=== PATIENT | female | born 1995 | race African-American/Black ===

== ENCOUNTER 2016-08-02 10:55 | Emergency (ER) | payer MEDICAID ==
[2016-08-02 11:00] VITALS: RESP 16; TEMP 98.4
[2016-08-02] MEDS ORDERED: IBUPROFEN 600 MG TAB PO ONE (11:27)
--- NOTE | 2016-08-02 11:31 | EDPHY ---
H & P Stated Complaint: L foot injury yesterday from soccer game HPI/ROS: CHIEF COMPLAINT: Right foot pain HISTORY OF PRESENT ILLNESS: Patient was playing soccer last night around 8:00 p.m. when she injured her foot. She describes an inversion injury. There is minimal pain at that time. Over the course of the evening she noted some increasing pain. At midnight she woke with severe pain on the right foot over the 5th metatarsal. It was difficult to walk on. She took some Advil that improved her symptoms will back to sleep. Minimal pain at rest. Moderate pain when ambulating. Too painful for her to walk on. No radiating pain. No numbness or tingling. No pain in the ipsilateral ankle, heel, catalan or knee. No other associated complaints or modifying factors. PRIOR ORTHO INJURIES: Prior knee surgery in [place] REVIEW OF SYSTEMS: Ten systems reviewed and are negative unless otherwise noted in the HPI EXAMINATION General Appearance: Alert, no distress Cardiovascular: Pulses normal throughout. Symmetric DP and PT pulses. Brisk cap refill Neurological: A&O, sensory symmetric, strength symmetric. Normal proprioception great toe. Skin: Warm and dry, no rash. No ecchymosis. No hematoma. No lacerations or abrasions. Extremities: Right lower extremity: Tenderness to palpation over the base of the right 5th metatarsal. There is no tenderness of the medial malleolus. No tenderness of the lateral malleolus. No tenderness of the calcaneus. No tenderness of the proximal fibula. Range of motion is intact and symmetric to the left lower extremity. Neurovascular intact distal to the right foot pain. Psychiatric: Mood and affect normal DIFFERENTIAL DIAGNOSES: Including but not limited to sprain, strain, fracture, contusion, hematoma MDM: 11:20 a.m. Acute sprain of the right foot over the base of the 5th metatarsal. No tenderness of the malleoli. No tenderness of the calcaneus or proximal fibula. X-ray of the foot is ordered. 12:15 p.m. No acute radiologic abnormality as interpreted by me. 12:40 p.m. No acute findings on the x-ray by radiologist. Patient will be placed in a postoperative shoe and discharged home weightbearing as tolerated. Standard precautions for sprain discussed with the patient. She is to follow up with Orthopedics for definitive care. Return to the ED precautions discussed. She is comfortable with this plan, discharged home in stable condition, neurovascular intact. ED Precautions: Worsening pain. Erythema, edema, cyanosis, pallor, paresthesia or anesthesia. SUPERVISION: This patient was independently evaluated without direct examination by the attending physician. Case was discussed with attending physician. Source: Patient Exam Limitations: No limitations - Personal History LMP (Females 10-55): 15-21 Days Ago Current Tetanus Diphtheria and Acellular Pertussis (TDAP): Yes - Medical/Surgical History Other PMH: neg - Social History Smoking Status: Never smoked Constitutional: Initial Vital Signs Temperature (C) 98.4 F 08/02/16 10:56 Heart Rate 93 08/02/16 10:56 Respiratory Rate 16 08/02/16 10:56 Blood Pressure 113/65 08/02/16 10:56 O2 Sat (%) 97 08/02/16 10:56 O2 Delivery Mode Room Air Allergies/Adverse Reactions: No Known Allergies Allergy (Unverified 08/02/16 10:59) Home Medications: Medication Instructions Recorded NK [No Known Home Meds] 08/02/16 Medical Decision Making - Diagnostics Imaging Results: Imaging Impressions Foot X-Ray 08/02/16 11:02 Impression: There is no acute osseous abnormality identified. - Data Points Medications Given: Discontinued Medications Ibuprofen (Motrin) 600 mg PO EDNOW ONE Stop: 08/02/16 11:28 Last Admin: 08/02/16 11:35 Dose: 600 mg Departure - Departure Disposition: Home, Routine, Self-Care Clinical Impression: Foot sprain Qualifiers: Encounter type: initial encounter Laterality: right Qualified Code(s): S93.601A - Unspecified sprain of right foot, initial encounter Condition: Good Instructions: Foot Sprain (ED) Additional Instructions: Weightbearing as tolerated. Advanced activity slowly as tolerated. Follow up with [facility] for definitive care. Return to the ER for worsening pain, swelling, redness, numbness or tingling Referrals: UNKNOWN,DOCTOR [Other] - As per Instructions Laurita Kothari MD [Medical Doctor] - As per Instructions
[2016-08-02 12:54] VITALS: BP 107/74; PULSE 91; O2SAT 96
== END 2016-08-02 12:54 | disposition home or self-care (01) ==
DX: S93.601A Unspecified sprain of right foot, initial encounter (principal); X58.XXXA Exposure to other specified factors, initial encounter; Y99.8 Other external cause status; Y93.66 Activity, soccer
CPT/HCPCS: L3260

== ENCOUNTER 2016-12-16 23:27 | Emergency (ER) | payer MEDICAID ==
--- NOTE | 2016-12-17 | EDPHY ---
H & P Stated Complaint: PEDERSEN, fever, chills, nausea 1300 hours. HPI/ROS: HPI CHIEF COMPLAINT: Chills, nausea, low back pain, frontal headache, fatigue HISTORY OF PRESENT ILLNESS: This patient very pleasant 21-year-old female, otherwise healthy, no significant medical history does not take any daily medication, presents emergency room with chills and rigors. Patient reports that around 1 o'clock this afternoon she felt chills, shortly afterwards developed low back pain. Denies urinary symptoms. Additionally patient reports to me that she tried to sleep this evening but began having shakes and rigors. She denies any vomiting but does endorse nausea position she reports to me a frontal throbbing headache. She denies a global headache. Denies neck stiffness or neck pain. Denies productive cough or shortness of breath. Denies chest pain. Denies abdominal pain. She does state that she has muscle aches. Denies sore throat or ear pain. Denies runny nose. She decided come the emergency room this evening due to ongoing chills and could not go to sleep. Past Medical History: No medical history Past Surgical History: No surgical history Social History: Denies daily use of drugs alcohol tobacco products Family History: Noncontributory ROS REVIEW OF SYSTEMS: A comprehensive 10 point review of systems is otherwise negative aside from elements mentioned in the history of present illness. Exam Constitutional appears well nontoxic, triage nursing summary reviewed, vital signs reviewed, awake/alert. Initial triage vital was afebrile however tachycardic. Recheck temperature 39.2degrees. Eyes normal conjunctivae and sclera, EOMI, PERRLA. HENT no meningeal signs on exam. Specifically no stiff neck. normal inspection , atraumatic, moist mucus membranes, no epistaxis, neck supple/ no meningismus, no raccoon eyes. Respiratory clear to auscultation bilaterally, normal breath sounds, no respiratory distress, no wheezing. Cardiovascular rate normal, regular rhythm, no murmur, no edema, distal pulses normal. Gastrointestinal soft, non-tender, no rebound, no guarding, normal bowel sounds, no distension, no pulsatile mass. Genitourinary no CVA tenderness. Musculoskeletal no midline vertebral tenderness, full range of motion, no calf swelling, no tenderness of extremities, no meningismus, good pulses, neurovascularly intact. Skin pink, warm, & dry, no rash, skin atraumatic. Neurologic awake, alert and oriented x 3, AAOx3, moves all 4 extremities equally, motor intact, sensory intact, CN II-XII intact, normal cerebellar, normal vision, normal speech. Psychiatric normal mood/affect. Heme/Lymph/Immune no lymphadenopathy. Differential Diagnosis: Includes but is not limited in a particular order acute febrile illness, dehydration, electrolyte disturbance, UTI, pyelonephritis , influenza Medical Decision Making: Plan for this patient she is acutely febrile here in the emergency room will obtain blood cultures lactic acid she will receive IV fluid bolus, check urinalysis, electrolytes, influenza. Tylenol for fever control she took ibuprofen prior to arrival. Re-evaluation: 0318AM: Re-evaluation at this time patient has been sleeping here in the emergency room in no acute distress. No vomiting. She states she feels much better after her IV fluids and fever control. Here in the room she had well nontoxic she does not have any meningeal signs. No stiff neck. Her headache is resolved. Her workup for febrile illness is unremarkable she negative flu. Chest x-ray does not show acute pneumonia blood work is reassuring. No elevated white blood cell count. Electrolytes are appropriate. Urinalysis clean. Her physical and does not indicate any source of infection. Blood cultures been placed. Lactic acid less than 2. Heart rate is improved. Blood pressure stable. She is afebrile after Tylenol. She has been resting comfortably she feels better would like to go home. I explained I will have a great source of her fever most likely viral syndrome. Flu is negative. I do not feel that she needs a lumbar puncture she has no meningeal signs. Her headache is resolved. She is nontoxic appearing. No rash. I explained that if she spikes a high fever feels worse has vomiting does not feel well she should return to the emergency room. She understands stay well-hydrated drink lots of fluids. Fever control Tylenol Motrin. Return if any worsening symptoms she understands. 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 - Social History Smoking Status: Never smoked Constitutional: Initial Vital Signs Temperature (C) 37.1 C 12/16/16 23:40 Heart Rate 130 H 12/16/16 23:40 Respiratory Rate 18 12/16/16 23:40 Blood Pressure 109/67 12/16/16 23:40 O2 Sat (%) 95 12/16/16 23:40 O2 Delivery Mode Room Air Allergies/Adverse Reactions: No Known Allergies Allergy (Verified 12/16/16 23:45) Home Medications: Medication Instructions Recorded NK [No Known Home Meds] 08/02/16 Medical Decision Making - Data Points Laboratory Results: Laboratory Results 12/17/16 00:39 12/17/16 00:39 12/17/16 12/17/16 12/17/16 00:39 00:39 00:39 WBC RBC Hgb Hct MCV MCH MCHC RDW Plt Count MPV Neut % (Auto) Lymph % (Auto) [place] % (Auto) Eos % (Auto) Baso % (Auto) Nucleat RBC Rel Count Absolute Neuts (auto) Absolute Lymphs (auto) Absolute Monos (auto) Absolute Eos (auto) Absolute Basos (auto) Absolute Nucleated RBC Immature Gran % Immature Gran # VBG Lactic Acid 1.6 mmol/L mmol/L (0.7-2.1) Sodium 136 mEq/L mEq/L (134-144) Potassium 3.7 mEq/L mEq/L (3.5-5.2) Chloride 103 mEq/L mEq/L (97-110) Carbon Dioxide 20 mEq/l L mEq/l (22-31) Anion Gap 13 mEq/L mEq/L (8-16) BUN 12 mg/dL mg/dL (7-23) Creatinine 0.7 mg/dL mg/dL (0.6-1.0) Estimated GFR > 60 Glucose 136 mg/dL H mg/dL (70-100) Calcium 9.6 mg/dL mg/dL (8.5-10.4) Total Bilirubin 0.8 mg/dL mg/dL (0.1-1.4) Conjugated Bilirubin 0.2 mg/dL mg/dL (0.0-0.5) Unconjugated Bilirubin 0.6 mg/dL mg/dL (0.0-1.1) AST 41 IU/L IU/L (14-46) ALT 43 IU/L IU/L (9-52) Alkaline Phosphatase 70 IU/L IU/L (38-126) Total Protein 7.3 g/dL g/dL (6.3-8.2) Albumin 4.3 g/dL g/dL (3.5-5.0) Lipase 59 IU/L IU/L (23-300) Beta HCG, Qual NEGATIVE Urine Color Urine Appearance Urine pH Ur Specific [place] Urine Protein Urine Ketones Urine Blood Urine Nitrate Urine Bilirubin Urine Urobilinogen Ur Leukocyte Esterase Urine Glucose Influenza A & B (PCR) Influenza A,B Rapid 12/17/16 12/17/16 12/17/16 00:39 00:18 00:10 WBC 7.01 10^3/uL 10^3/uL (3.80-9.50) RBC 4.30 10^6/uL 10^6/uL (4.18-5.33) Hgb 12.7 g/dL g/dL (12.6-16.3) Hct 37.0 % L % (38.0-47.0) MCV 86.0 fL fL (81.5-99.8) MCH 29.5 pg pg (27.9-34.1) MCHC 34.3 g/dL g/dL (32.4-36.7) RDW 12.7 % % (11.5-15.2) Plt Count 155 10^3/uL 10^3/uL (150-400) MPV 10.6 fL fL (8.7-11.7) Neut % (Auto) 84.8 % H % (39.3-74.2) Lymph % (Auto) 11.3 % L % (15.0-45.0) [place] % (Auto) 2.0 % L % (4.5-13.0) Eos % (Auto) 0.3 % L % (0.6-7.6) Baso % (Auto) 0.6 % % (0.3-1.7) Nucleat RBC Rel Count 0.3 % H % (0.0-0.2) Absolute Neuts (auto) 5.95 10^3/uL 10^3/uL (1.70-6.50) Absolute Lymphs (auto) 0.79 10^3/uL L 10^3/uL (1.00-3.00) Absolute Monos (auto) 0.14 10^3/uL L 10^3/uL (0.30-0.80) Absolute Eos (auto) 0.02 10^3/uL L 10^3/uL (0.03-0.40) Absolute Basos (auto) 0.04 10^3/uL 10^3/uL (0.02-0.10) Absolute Nucleated RBC 0.02 10^3/uL H 10^3/uL (0-0.01) Immature Gran % 1.0 % % (0.0-1.1) Immature Gran # 0.07 10^3/uL 10^3/uL (0.00-0.10) VBG Lactic Acid Sodium Potassium Chloride Carbon Dioxide Anion Gap BUN Creatinine Estimated GFR Glucose Calcium Total Bilirubin Conjugated Bilirubin Unconjugated Bilirubin AST ALT Alkaline Phosphatase Total Protein Albumin Lipase Beta HCG, Qual Urine Color Urine Appearance Urine pH Ur Specific [place] Urine Protein Urine Ketones Urine Blood Urine Nitrate Urine Bilirubin Urine Urobilinogen Ur Leukocyte Esterase Urine Glucose Influenza A & B (PCR) NEGATIVE FOR FLU (NEGATIVE) Influenza A,B Rapid Cancelled 12/17/16 00:04 WBC RBC Hgb Hct MCV MCH MCHC RDW Plt Count MPV Neut % (Auto) Lymph % (Auto) [place] % (Auto) Eos % (Auto) Baso % (Auto) Nucleat RBC Rel Count Absolute Neuts (auto) Absolute Lymphs (auto) Absolute Monos (auto) Absolute Eos (auto) Absolute Basos (auto) Absolute Nucleated RBC Immature Gran % Immature Gran # VBG Lactic Acid Sodium Potassium Chloride Carbon Dioxide Anion Gap BUN Creatinine Estimated GFR Glucose Calcium Total Bilirubin Conjugated Bilirubin Unconjugated Bilirubin AST ALT Alkaline Phosphatase Total Protein Albumin Lipase Beta HCG, Qual Urine Color YELLOW Urine Appearance CLEAR Urine pH 5.0 (5.0-7.5) Ur Specific [place] 1.014 (1.002-1.030) Urine Protein NEGATIVE (NEGATIVE) Urine Ketones NEGATIVE (NEGATIVE) Urine Blood NEGATIVE (NEGATIVE) Urine Nitrate NEGATIVE (NEGATIVE) Urine Bilirubin NEGATIVE (NEGATIVE) Urine Urobilinogen NEGATIVE EU EU (0.2-1.0) Ur Leukocyte Esterase NEGATIVE (NEGATIVE) Urine Glucose NEGATIVE (NEGATIVE) Influenza A & B (PCR) Influenza A,B Rapid Medications Given: Discontinued Medications Acetaminophen (Tylenol) 1,000 mg PO EDNOW ONE Stop: 12/17/16 00:09 Last Admin: 12/17/16 00:16 Dose: 1,000 mg Sodium Chloride (Ns) 2,000 mls @ 0 mls/hr IV EDNOW ONE; Wide Open PRN Reason: Protocol Stop: 12/17/16 00:08 Last Admin: 12/17/16 00:45 Dose: 2,000 mls Ondansetron HCl (Zofran) 4 mg IVP EDNOW ONE Stop: 12/17/16 00:08 Last Admin: 12/17/16 00:46 Dose: 4 mg Departure - Departure Disposition: Home, Routine, Self-Care Clinical Impression: Viral syndrome Fever Qualifiers: Fever type: unspecified Qualified Code(s): R50.9 - Fever, unspecified Condition: Good Instructions: Fever in Adults (ED), Viral Syndrome (ED) Additional Instructions: 1. Make sure to drink lots of fluids. 2. Stay well-hydrated. 3. Return to the emergency room if develops worsening symptoms includes high fever, vomiting or you do not feel well. 4. Take Tylenol Motrin for pain control and fever control you can alternate these every 6 hours. Referrals: NONE *PRIMARY CARE P,. [Primary Care Provider] - As per Instructions
[2016-12-17] MEDS ORDERED: ONDANSETRON 4 MG/2 ML VIAL IVP ONE (00:07)
[2016-12-17] MEDS ORDERED: NS 2,000 ML IV ONE (00:07)
[2016-12-17] MEDS ORDERED: ACETAMINOPHEN 500 MG TAB PO ONE (00:08)
[2016-12-17 00:17] LABS: COLOR YELLOW; LEUKOCYTE ESTERASE,URINE NEGATIVE (NEGATIVE); NITRITE,URINE NEGATIVE (NEGATIVE)
[2016-12-17 01:06] LABS: ABSOLUTE IMMATURE GRANULOCYTES 0.07 10^3/uL (0.00-0.10); ABSOLUTE NRBC COUNT 0.02 10^3/uL (0-0.01); ADD DIFF? NO; ADD MORPH? NO; ADD SCAN? NO; ATYPICAL LYMPHOCYTE FLAG 0 (0-99); FRAGMENT RBC FLAG 0 (0-99); HEMOGLOBIN 12.7 g/dL (12.6-16.3); LEFT SHIFT FLG 10 (0-99); LIPEMIA HEMOLYSIS FLAG 90 (0-99); MEAN CELL HEMOGLOBIN 29.5 pg (27.9-34.1); MEAN CELL HEMOGLOBIN CONCENTR. 34.3 g/dL (32.4-36.7); MEAN PLATELET VOLUME 10.6 fL (8.7-11.7); NRBC-AUTO% 0.3 % (0.0-0.2); PLATELET CLUMPS FLAG 0 (0-99); PLATELET COUNT 155 10^3/uL (150-400); RED CELL DISTRIBUTION WIDTH 12.7 % (11.5-15.2)
[2016-12-17 01:07] LABS: ALANINE AMINOTRANSFERASE 43 IU/L (9-52); ALBUMIN 4.3 g/dL (3.5-5.0); ALKALINE PHOSPHATASE 70 IU/L (38-126); ANION GAP 13 mEq/L (8-16); ASPARTATE AMINOTRANSFERASE 41 IU/L (14-46); BILIRUBIN,TOTAL 0.8 mg/dL (0.1-1.4); BILIRUBIN-CONJUGATED 0.2 mg/dL (0.0-0.5); BILIRUBIN-UNCONJUGATED 0.6 mg/dL (0.0-1.1); CALCIUM 9.6 mg/dL (8.5-10.4); CARBON DIOXIDE 20 mEq/l (22-31); CHLORIDE 103 mEq/L (97-110); CREATININE 0.7 mg/dL (0.6-1.0); GLOMERULAR FILTRATION RATE > 60; GLUCOSE 136 mg/dL (70-100); POTASSIUM 3.7 mEq/L (3.5-5.2); SODIUM 136 mEq/L (134-144); TOTAL PROTEIN 7.3 g/dL (6.3-8.2)
[2016-12-17 03:46] VITALS: BP 85/51; PULSE 95; RESP 18; TEMP 98.2; O2SAT 94
== END 2016-12-17 03:46 | disposition home or self-care (01) ==
DX: B34.9 Viral infection, unspecified (principal); E86.9 Volume depletion, unspecified
CPT/HCPCS: 96374; J2405